=== PATIENT | male | born 1990 | race Caucasian/White ===

== ENCOUNTER 2019-12-10 19:19 | Emergency (ER) | payer SELFPAY ==
[~2019-12-10] VITALS: Ht 175.3 cm; Wt 72.6 kg
== END 2019-12-10 22:09 | disposition home or self-care (01) ==
LOC: ED 19:19
DX: F15.10 Other stimulant abuse, uncomplicated (principal); F11.10 Opioid abuse, uncomplicated; F17.200 Nicotine dependence, unspecified, uncomplicated
CPT/HCPCS: 80053; 80176; 81001; 84443; 85025; 99283; G0480